=== PATIENT | male | born 1945 | race Caucasian/White ===

== ENCOUNTER 2020-01-22 05:52 | Inpatient (IN) | payer OTHER ==
[2020-01-21 12:43] LABS: BASOPHILS % (AUTO) 0.9 % (0.0-5.0); EOSINOPHILS % (AUTO) 4.1 % (0.0-8.0); HEMATOCRIT 32.2 % (42-54); LYMPHOCYTES % (AUTO) 25.6 % (21.0-51.0); MEAN CORPUSCULAR HEMOGLOBIN 34.4 pg (27.0-33.0); MEAN CORPUSCULAR HGB CONC 33.9 g/dL (32.0-36.0); MEAN CORPUSCULAR VOLUME 101.6 fL (79-99); MONOCYTES % (AUTO) 14.4 % (3.0-13.0); NEUTROPHILS % (AUTO) 54.6 % (40.0-77.0); PLATELET COUNT (AUTO) 113 K/uL (130-400); RED BLOOD CELL COUNT(AUTO) 3.17 MIL/uL (4.50-6.20); WHITE BLOOD COUNT (AUTO) 5.6 K/uL (4.8-10.8)
[2020-01-21 12:45] LABS: APPEARANCE,URINE Clear (CLEAR); BILIRUBIN,URINE Negative (NEGATIVE); COLOR,URINE Yellow (YELLOW); GLUCOSE, URINE (UA) Negative (NEGATIVE); KETONES,URINE Negative (NEGATIVE); LEUKOCYTE ESTERASE ,URINE Negative (NEGATIVE); NITRATE,URINE Negative (NEGATIVE); OCCULT BLOOD,URINE Negative (NEGATIVE); PH,URINE 5.5 (5.0-8.0); PROTEIN,URINE POS 2+ mg/dL (NEGATIVE); UROBILINOGEN,URINE 0.2 mg/dL (0.2-1.0)
[2020-01-21 12:51] LABS: CREATININE 3.5 mg/dL (0.5-1.5); POTASSIUM 4.3 mmol/L (3.5-5.1)
[2020-01-21 12:55] LABS: INR 0.97 (0.85-1.15); PARTIAL THROMBOPLASTIN TIME 26.9 SEC (26.3-35.5); PROTHROMBIN TIME 10.5 SEC (9.6-11.6)
[2020-01-21 13:01] LABS: BACTERIA,URINE None Seen /HPF (None Seen); RBC,URINE 0-1 /HPF (0-1); WBC,URINE 0-1 /HPF (0-1)
[2020-01-21 13:05] VITALS: BP 177/88
--- NOTE | 2020-01-21 14:00 | NUR ---
LABS ABNORMAL BUN/CREA, H&H, PLT , REPORTED TO CHEYENNE CROOK, DR. Maria Luz BROWN SPOKE TO PATIENT REGARDING PROCEDURE AGAIN AND HIGH RISK DUE TO HIS KIDNEY FUNCTION , PT WILL THINK ABOUT IT AND DECIDE THIS PM WHETHER HE WILL CONTINUE WITH PLANNED PROCEDURE.
[~2020-01-22] VITALS: Ht 175.3 cm; Wt 78.2 kg
[2020-01-22] VITALS (11 sets, daily range): BP systolic 115–183; BP diastolic 68–115
--- NOTE | 2020-01-22 07:50 | NUR ---
DR BROWN SPEAKS TO PATIENT AT BEDSIDE. CONSENT SIGNED
[2020-01-22] MEDS ORDERED: SODIUM CHLORIDE 0.9% 1000ML 1,000 ML IV ONE ×2 (08:03→22:21)
[2020-01-22] MEDS ORDERED: AMLO-258 PO (08:17)
[2020-01-22] MEDS ORDERED: MONT10TA26 PO (08:17)
[2020-01-22] MEDS ORDERED: PANT40TA54 PO (08:17)
[2020-01-22] MEDS ORDERED: CETI10TA57 PO (08:17)
[2020-01-22] MEDS ORDERED: ATEN100T PO (08:17)
[2020-01-22] MEDS ORDERED: HYDR-4154 PO (08:17)
[2020-01-22] MEDS ORDERED: CYAN1000I IM (08:17)
[2020-01-22] MEDS ORDERED: SENN8.6T32 PO (08:17)
[2020-01-22] MEDS ORDERED: MELA3TAB41 PO (08:17)
--- NOTE | 2020-01-22 08:20 | NUR ---
DR CHRIS TRAMMELL NOTIFIED WITH CONSULT INFORMATION- ASKED TO BE CALLED ONCE PATIENT IN HIS ROOM
[2020-01-22] MEDS: SODIUM CHLORIDE 0.9% 1000ML 1,000 ML IV SCH ×3 (08:22→21:20)
[2020-01-22] MEDS ORDERED: MIDAZOLAM HCL 1 MG/ML 2ML VIAL ONE (08:35)
[2020-01-22] MEDS ORDERED: HEPARIN SODIUM 1000UNIT/ML 10ML VIAL ONE ×3 (11:20→18:40)
[2020-01-22] MEDS ORDERED: IODIXANOL 320 MG/ML 100 ML VIAL ONE ×2 (11:20→18:42)
[2020-01-22] MEDS ORDERED: MINERAL OIL 25 ML OIL TP ONE (11:26)
[2020-01-22] MEDS ORDERED: LIDOCAINE HCL MPF 1% 5ML VIAL ONE (11:28)
[2020-01-22] MEDS ORDERED: PROPOFOL 10 MG/ML 20ML VIAL IV ONE ×2 (11:28→13:04)
[2020-01-22] MEDS ORDERED: ROCURONIUM BROMIDE 10MG/1ML 5ML VL ONE (11:29)
[2020-01-22] MEDS ORDERED: FENTANYL CITRATE PF 50 MCG/1 ML 2ML VIAL ONE ×4 (11:29→21:31)
[2020-01-22] MEDS ORDERED: PHENYLEPHRINE HCL 10 MG/ML 1ML VIAL IV ONE (11:54)
[2020-01-22] MEDS ORDERED: CEFAZOLIN SODIUM 1 GM VIAL ONE (11:56)
[2020-01-22] MEDS ORDERED: GLYCOPYRROLATE 1 MG/5 ML SYRINGE ONE (12:21)
[2020-01-22] MEDS ORDERED: NITROGLYCERIN 2 MG/VIAL VIAL IV ONE (13:50)
[2020-01-22 16:51] LABS: ABG BASE EXCESS -6.3 mmol/L (-2.0-3.0); ABG OXYGEN SATURATION 98.3 % (95.0-99.0); ABG PCO2 37 mmHg (35-48)
[2020-01-22] MEDS ORDERED: SODIUM BICARB 50MEQ 50ML VIAL ONE ×2 (17:02→20:16)
[2020-01-22 18:24] LABS: ABG BASE EXCESS -3.3 mmol/L (-2.0-3.0); ABG HCO3 21.4 mmol/L (21.0-28.0); ABG OXYGEN SATURATION 98.1 % (95.0-99.0); ABG PCO2 37 mmHg (35-48)
[2020-01-22] MEDS ORDERED: SODIUM BICARB 8.4% 50ML SYRINGE IVP ONE (18:38)
[2020-01-22] MEDS ORDERED: EPINEPHRINE 0.1 MG/ML 10 ML SYG IVP ONE (18:38)
[2020-01-22] MEDS ORDERED: HYDRALAZINE HCL 20 MG/ML VIAL ONE (19:51)
[2020-01-22 20:06] LABS: ABG BASE EXCESS -6.9 mmol/L (-2.0-3.0); ABG HCO3 18.5 mmol/L (21.0-28.0); ABG OXYGEN SATURATION 98.1 % (95.0-99.0); ABG PCO2 37 mmHg (35-48)
[2020-01-22] MEDS ORDERED: ACETAMINOPHEN 325 MG TAB PO PRN (22:00)
[2020-01-22] MEDS ORDERED: SODIUM CHLORIDE 0.9% 1000ML 1,000 ML IV SCH (22:00)
[2020-01-22] MEDS ORDERED: MORPHINE SULFATE 4 MG/1ML SYG IV PRN (22:00)
[2020-01-22] MEDS ORDERED: NITROGLYCERIN 50 MG/D5% WATER 250 BOT IV SCH (22:00)
--- NOTE | 2020-01-22 22:10 | NUR ---
ADMIT 2104 RECIEVED TEACHER PHYSICALLY IMPAIRED REPORT FROM MIKAYLA Ferrara RN AT 2210 PT ADMIT RM 217 ACCOMPANIED BY TEACHER PHYSICALLY IMPAIRED TEAM AND ALL AROUND PATTERNMAKER. PT ARRIVED WITH O2 NRB 15L AND SPINAL DRAIN WHICH WAS LEVELED AND ADJUSTED TO PROPER POSITION AND OPEN TO DRAIN BY ALL AROUND PATTERNMAKER AT BEDSIDE. PT CONNECTED TO BEDSIDE MONITOR NOTED TO BE HYPERTENSIVE AWAKE/ ALERT RESPONDING TO COMMANDS. UPON ASSESSMENT WITH TEACHER PHYSICALLY IMPAIRED NURSE ZORA ELLSWORTH NOTED BILAT LOWER EXTREMITIES SKIN MOTTLED LEFT GREATER THAN RIGHT. BILAT DP PULSE WEAK. BILAT GROIN SITES WITH PRESSURE DRESSINGS IN PLACE SITE SOFT WITH NO SIGNS OF HEMATOMA/BLEEDING. DRConstantin ORDERS REVIEWED AT BEDSIDE WITH MIKAYLA Ferrara RN BENCHMARK NOTIFIED OF CONSULT PT ARRIVAL, PROCEDURE DONE , CURRENT STATUS AND MEDS. NO NEW ORDERS RECEIVED. WILL CONTINUE TO MONITOR PT.
[2020-01-22] MEDS ORDERED: NITROGLYCERIN 50 MG/D5% WATER 1 BOT ONE (22:21)
[2020-01-22] MEDS ORDERED: ONDANSETRON HCL 4 MG/2 ML VIAL ONE (22:45)
[2020-01-22] MEDS ORDERED: MORPHINE SULFATE 4 MG/1ML SYG ONE (22:45)
[2020-01-22] MEDS ORDERED: NOREPINEPHRINE 4MG/NS 250ML 250 ML IV ONE (22:50)
[2020-01-23] VITALS (77 sets, daily range): BP systolic 76–167; BP diastolic 47–97
[2020-01-23 02:40] LABS: HEMATOCRIT 36.2 % (42-54)
[2020-01-23] MEDS: NOREPINEPHRINE 4MG/NS 250ML 250 ML IV SCH ×2 (03:24→22:33)
--- NOTE | 2020-01-23 03:30 | NUR ---
STATUS 0215 PATIENT COLOR IMPROVED ON RIGHT LOWER EXTREMITY. LEFT TOES REMAIN DUSKY. LEFT DP ABSENT. PATIENT REQUIRING INCREASED USE OF VASOPRESSORS TO ATTEMPT TO KEEP IN SBP PERAMETERS. COMPLAINT OF PAIN TO ABDOMEN, BACK, AND PELVIS. 0247 - DR BROWN PAGED AT [phone] TO PROVIDE WITH PATIENT UPDATE AND NOTIFY OF BP AND LEFT LE STATUS 0256 - [facility] DAIRY MANAGER PARIMUTUEL CASHIER PAGED 0301- SPOKE WITH DR NELSON. UPDATED ON PATIENT CONDITION. BP AND VASOPRESSOR USE, ABSENT DP PULSE, PAIN, AND H/H RESULT. NO NEW ORDERS. CONTINUE CURRENT INTERVENTIONS .ASKED MD ABOUT ARTERIAL DOPPLER. OK TO ORDER IN AM. 031- CALLED HS ALTERNATE NUMBER FOR DR HURD CALLED. [phone] 0330 - CC PARIMUTUEL CASHIER JASVIR CLEMENTS CALLED THOUGH ANSWERING SERVICE. UPDATED ON PATIENT CONDITION AND CALL WITH CARDIOLOGY. ORDERS RECEIVED AND ENTERED INTO SYSTEM. RADIOLOGY PAGED
[2020-01-23] MEDS: SODIUM CHLORIDE 0.9% 1000ML 1,000 ML IV SCH ×4 (04:00→21:58)
[2020-01-23 04:05] LABS: ABG BASE EXCESS -22.3 mmol/L (-2.0-3.0); ABG HCO3 6.8 mmol/L (21.0-28.0); ABG OXYGEN SATURATION 98.9 % (95.0-99.0); ABG PCO2 26 mmHg (35-48)
[2020-01-23] MEDS ORDERED: SODIUM BICARB 50MEQ 50ML VIAL ONE ×3 (04:05→04:13)
--- NOTE | 2020-01-23 04:10 | NUR ---
STATUS 0406- RT PAGED. ABG DRAWN. PER RESULTS PATIENT ACIDOTIC. PAGED CC GLASS SMOOTHER AGAIN AND PROVIDED WITH ABG RESULTS. ORDERS FOR 2 AMPS OF BICARB IVP THEN BICARB DRIP @ 100 ML/HR. ABX THERAPY WITH ZOSYN INITIATED.
[2020-01-23] MEDS ORDERED: DEXTROSE 5%-WATER 1,000 ML IV ONE (04:14)
[2020-01-23 04:28] LABS: HEMATOCRIT 35.7 % (42-54); MEAN CORPUSCULAR HEMOGLOBIN 32.4 pg (27.0-33.0); MEAN CORPUSCULAR HGB CONC 32.2 g/dL (32.0-36.0); MEAN CORPUSCULAR VOLUME 100.6 fL (79-99); NUCLEATED RED BLOOD CELLS 0.1 % (0.0-0.19); RED BLOOD CELL COUNT(AUTO) 3.55 MIL/uL (4.50-6.20); RED CELL DISTRIBUTION WIDTH 17.1 % (11.0-15.5); WHITE BLOOD COUNT (AUTO) 28.3 K/uL (4.8-10.8)
[2020-01-23 04:49] LABS: CREATININE 4.8 mg/dL (0.5-1.5); POTASSIUM 4.8 mmol/L (3.5-5.1)
[2020-01-23] MEDS ORDERED: SODIUM BICARB 8.4% 50ML SYRING 200 MEQ in DEXTROSE 5%-WATER 950 ML IV ONE (05:45)
[2020-01-23] MEDS ORDERED: RENAL DOSE IV PRN (06:00)
[2020-01-23] MEDS: ZOSYN 3.375GM+NS 50ML 50 ML IV SCH ×2 (06:00→18:35)
[2020-01-23] MEDS: ONDANSETRON HCL 4 MG/2 ML VIAL IV PRN ×2 (06:02→20:14)
[2020-01-23] MEDS ORDERED: ZOSYN 3.375GM+NS 50ML 50 ML IV ONE (06:12)
[2020-01-23] MEDS: SODIUM BICARB 50MEQ 50ML VIAL IV SCH ×2 (06:29→08:29)
--- NOTE | 2020-01-23 06:33 | NUR ---
STATUS BP SLIGHTLY IMPROVED. STILL REQUIRING HIGH DOSE OF VASOPRESSOR TO MAINTAIN PARAMETERS. DR NELSON CALLED TO GET UPDATE ON PATIENT CONDITION. UPDATED ON ABG RESULTS AND INTERVENTIONS, VASOPRESSOR USE, AND PRELIMINARY RESULTS OF ARTERIAL DOPPLERS. STATED HE WOULD NOTIFY DR BROWN.
[2020-01-23 06:59] LABS: ABG BASE EXCESS -15.1 mmol/L (-2.0-3.0); ABG HCO3 11.6 mmol/L (21.0-28.0); ABG OXYGEN SATURATION 98.6 % (95.0-99.0); ABG PCO2 30 mmHg (35-48)
--- NOTE | 2020-01-23 07:00 | NUR ---
REPORT BEDSIDE REPORT GIVEN TO FRAN FRENCH RN. ON INSPECTION LEFT FOOT NOW PINK WITH WEAK PALPABLE DP PULSE. DRIPS REVIEWED.
[2020-01-23] MEDS ORDERED: HEPARIN 25000 UNITS/250 ML D5W 250 ML IV SCH (08:15)
[2020-01-23] MEDS: CETIRIZINE HCL 5 MG TABLET PO SCH (08:22)
[2020-01-23] MEDS: PANTOPRAZOLE SODIUM 40 MG TABLET.DR PO SCH (08:22)
[2020-01-23] MEDS: MORPHINE SULFATE 5 MG/ML VIAL IV PRN ×4 (08:23→20:24)
[2020-01-23] MEDS: CYANOCOBALAMIN (VITAMIN B-12) 1000 MCG/ML 1ML VIAL IM SCH (09:00)
[2020-01-23] MEDS: ATENOLOL 50 MG TABLET PO SCH (09:00)
[2020-01-23] MEDS: AMLODIPINE BESYLATE 5 MG TAB PO SCH (09:00)
[2020-01-23] MEDS: HYDRALAZINE HCL 25 MG TABLET PO SCH ×3 (09:00→19:57)
--- NOTE | 2020-01-23 09:00 | NUR ---
CHEYENNE PATTERSON HERE AND ADVISED PATIENT PLAN OF CARE FOR PATIENT.
[2020-01-23 10:31] LABS: INR 1.2 (0.85-1.15); PROTHROMBIN TIME 12.9 SEC (9.6-11.6)
[2020-01-23] MEDS ORDERED: NEOSTIGMINE 5MG/5ML SYR IV ONE (11:23)
[2020-01-23 11:58] LABS: ALBUMIN 2.1 g/dL (3.5-5.0); BILIRUBIN,TOTAL 0.6 mg/dL (0.2-1.0); CREATININE 5.2 mg/dL (0.5-1.5); POTASSIUM 4.3 mmol/L (3.5-5.1); TOTAL PROTEIN, SERUM 5.1 g/dL (6.0-8.3)
--- NOTE | 2020-01-23 15:00 | NUR ---
PT WAS ASSESSED BY DR. JIMENEZ AND ADVISED OF POSSIBLE NEED FOR DIALYSIS AND NEED FOR DIALYSIS CATHETER. WAS CONCERNED BECAUSE DR. 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 WAS ADVISED THAT HE WAS ADVISING HER OF POSSIBLE DIALYSIS AND THE NEED FOR A CATHETER. THE DOCTOR DECIDING FOR DIALYSIS WOULD BE DR. NYE.
--- NOTE | 2020-01-23 15:30 | NUR ---
DR. SOMERS HERE AND SPOKE WITH ABOUT NEEDING TO KEEP PATIENT WITH PRESENT TREATMENT AND THAT DR. NYE WOULD ADVISE ON DIALYSIS WHEN AND WHY HE WOULD NEED IT.
--- NOTE | 2020-01-23 16:00 | NUR ---
DIALYSIS CATHETER BY IR WAS SCHEDULED AND HAILY CARMICHAEL WAS ADVISED PER SCHEDULING AND MS. CARMICHAEL WAS ADVISED OF THE PATIENT BEING RETRIMMER. IR DOCTOR ORDERED FOR HEPARIN TO BE STOPPED AT 8AM AND THE CATHETER INSERTION IS SCHEDULED FOR 10 AM.
--- NOTE | 2020-01-23 16:23 | NUR ---
DC PLAN VISITED WITH PATIENT. PATIENT LIVES WITH SPOUSE. INDEPENDENT ABLE TO PERFORM ADL'S. PATIENT HAS NO SERVICES OR DME'S. FEELS SAFE TO RETURN HOME. Addendum: 01/23/20 at 1625 by QAMAR PACHECO RN CM Amended: Links added.
[2020-01-23 17:37] LABS: INR 1.25 (0.85-1.15); PROTHROMBIN TIME 13.4 SEC (9.6-11.6)
[2020-01-23 17:56] LABS: PARTIAL THROMBOPLASTIN TIME > 120.0 SEC (26.3-35.5)
--- NOTE | 2020-01-23 17:57 | NUR ---
IN ROOM AND HAS BEEN ADVISED OF THE IR PLACING DIALYSIS CATHETER TO BE PLACED TOMORROW AT 10AM.
--- NOTE | 2020-01-23 18:00 | NUR ---
HEPARIN HAS BEEN STOPPED FOR [address] WARM COMPRESSES TO LEFT FOOT. PT C/O BEING COLD AND WANTS IT COVERED.
--- NOTE | 2020-01-23 19:30 | NUR ---
ASSESSMENT ASSESSMENT COMPLETED. PATIENT AAOX3. BREATHING REGULAR AND UNLABORED ON NC. VERBALIZES PAIN TO ABDOMEN/BACK, PELVIS AFTER BEING MEDICATED. SODIUM BICARB DRIP AND HEPARIN DRIP RUNNING. NOREPINEPHRINE RE-INITIATED BY AM SHIFT DUE TO HYPOTENSION. SPOUSE AT THE BEDSIDE. DISCUSSED PLAN OF CARE. Addendum: 01/24/20 at 0957 by CARIE MORROW RN RN PULSES VERIFIED BY DOPPLER
[2020-01-23] MEDS ORDERED: MELATONIN 3 MG PO SCH (21:00)
[2020-01-23] MEDS ORDERED: SENNOSIDES 8.6 MG TABLET PO SCH (21:00)
[2020-01-23] MEDS ORDERED: MONTELUKAST SODIUM 10 MG TAB PO SCH (21:00)
[2020-01-23] MEDS: SODIUM BICARB 8.4% 50ML SYRING 200 MEQ in DEXTROSE 5%-WATER 950 ML IV SCH (21:50)
[2020-01-23 23:16] LABS: ABG BASE EXCESS 4.6 mmol/L (-2.0-3.0); ABG HCO3 29.3 mmol/L (21.0-28.0); ABG OXYGEN SATURATION 95.1 % (95.0-99.0); ABG PCO2 44 mmHg (35-48)
[2020-01-23 23:30] LABS: HEMATOCRIT 25.5 % (42-54)
[2020-01-24] VITALS (55 sets, daily range): BP systolic 25–143; BP diastolic 16–94
[2020-01-24] LABS: INR 1.28 (0.85-1.15); PROTHROMBIN TIME 13.7 SEC (9.6-11.6)
[2020-01-24 00:02] LABS: PARTIAL THROMBOPLASTIN TIME > 120.0 SEC (26.3-35.5)
[2020-01-24] MEDS ORDERED: SODIUM CHLORIDE 0.9% 250 ML IV ONE ×2 (00:02→02:00)
--- NOTE | 2020-01-24 00:05 | NUR ---
STATUS PATIENT REQUIRING INCREASED DOSES OF VASOPRESSOR SUPPORT. DP PULSES PRESENT BY DOPPLER. 2320 ABG COMPLETED WITH H/H AND PTT. 0001 FARM MANAGEMENT AGENT FOR [facility] CALLED. SPOKE WITH DR HOWARD. UPDATED ON PATIENT CONDITION. INCREASED NEED OF VASOPRESSOR SUPPORT CURRENT V/S. DROP IN H/H FROM AM. CURRENT COAG LABS WHILE ON HEPARIN DRIP. ABGS. UNRELIEVED PAIN AFTER MEDICATION TO ABDOMEN AND BACK. DUSKY TOES ON LEFT. DP PULSES + BY DOPPLER ORDERS RECEIVED FOR STAT CT ABDOMEN PELVIS WITHOUT CONTRAST. STOP HEPARIN DRIP. [address]US. CONTACT WITH [address] RESULTS TO [phone]
--- NOTE | 2020-01-24 01:15 | NUR ---
CT [address] VIA BED WITH RN AND PCP. CT COMPLETED WITHOUT INCIDENT. 250 ML BOLUS COMPLETED WITH NO EFFECT ON BP 0115- DR HOWARD CALLED AND PROVIDED WITH CT RESULTS. ORDERS RECEIVED FOR NG TUBE. CONTINUE WITH CURRENT TREATMENT.
[2020-01-24] MEDS: MORPHINE SULFATE 5 MG/ML VIAL IV PRN (01:40)
[2020-01-24] MEDS ORDERED: SIMETHICONE 80 MG TAB.CHEW ONE (01:58)
[2020-01-24] MEDS ORDERED: SIMETHICONE 80 MG TAB.CHEW PO PRN (02:00)
[2020-01-24 03:54] LABS: ABG HCO3 26.6 mmol/L (21.0-28.0); ABG OXYGEN SATURATION 92.7 % (95.0-99.0); ABG PCO2 42 mmHg (35-48)
--- NOTE | 2020-01-24 04:01 | NUR ---
STATUS 0200 NG TUBE PLACED 500 ML OF DARK GREEN/ BROWN FLUID REMOVED. PATIENT VOICES SOME RELIEF TO UPPER GASTRIC AREA. STILL COMPLAINS OF PAIN TO LOWER ABDOMEN/BACK/PELVIC AREA. PATIENT STILL REQUIRING INCREASED NEED FOR VASOPRESSOR SUPPORT WITH SBP DECREASING TO 70-80'S AT TIMES. PT GIVEN ANOTHER 250 ML BOLUS WITH NO EFFECT ON BP. DP PULSES STILL PRESENT VIA DOPPLER. BOTH RIGHT AND LEFT FOOT APPEAR DUSKY. PATIENT SILL HAS SENSATION TO TOUCH BILATERALLY. BLE COOL TO TOUCH. PROFOUND WEAKNESS TO RLE. UNABLE TO MOVE TOES CAN MOVE LE AT KNEE SLIGHTLY. NO ISSUES WITH MOVEMENT TO LEFT LE. INCREASED DRAINAGE FROM EPIDURAL CSF DRAIN. PATIENT WITH DECREASED LOC BUT STLL ORIENTED X3. ABG COMPLETED WITH REPEAT H/H. CALLED DR HOWARD. UPDATED ON CHANGES AND CURRENT PATIENT CONDITION AND MOST RECENT LABS. ORDERS RECEIVED FOR DOPAMINE DRIP.
[2020-01-24 04:14] LABS: HEMATOCRIT 25.2 % (42-54); MEAN CORPUSCULAR HGB CONC 34.1 g/dL (32.0-36.0); MEAN CORPUSCULAR VOLUME 93.7 fL (79-99); NUCLEATED RED BLOOD CELLS 0.4 % (0.0-0.19); RED BLOOD CELL COUNT(AUTO) 2.69 MIL/uL (4.50-6.20); RED CELL DISTRIBUTION WIDTH 17.5 % (11.0-15.5)
[2020-01-24] MEDS ORDERED: DOPAMINE 800MG/D5 250ML 250 ML IV ONE (04:25)
[2020-01-24 04:30] LABS: INR 1.21 (0.85-1.15); PARTIAL THROMBOPLASTIN TIME 49.9 SEC (26.3-35.5)
[2020-01-24] MEDS ORDERED: DEXTROSE 50%-WATER 50 ML DISP.SYRIN IV ONE (04:31)
[2020-01-24 04:51] LABS: CREATININE 6.2 mg/dL (0.5-1.5); MAGNESIUM 1.4 mg/dL (1.80-2.40); POTASSIUM 4.1 mmol/L (3.5-5.1)
[2020-01-24] MEDS ORDERED: DOPAMINE 800MG/D5 250ML 250 ML IV PRN (05:15)
[2020-01-24] MEDS: NOREPINEPHRINE 4MG/NS 250ML 250 ML IV SCH ×3 (05:31→15:27)
[2020-01-24] MEDS: ONDANSETRON HCL 4 MG/2 ML VIAL IV PRN (05:31)
--- NOTE | 2020-01-24 05:43 | NUR ---
CC SECONDARY ART TEACHER CC SECONDARY ART TEACHER PAGED FOR RECOMMENDATIONS AND UPDATE ON PATIENT CONDITION . ANSWERING SERVICE UNABLE TO REACH CC SECONDARY ART TEACHER. WILL CALL BACK ONCE IS ABLE TO REACH SECONDARY ART TEACHER.
--- NOTE | 2020-01-24 06:25 | NUR ---
STATUS 0540 LEFT AC PIV ACCESS LEAKING. IV REMOVED. MULTIPLE ATTEMPTS FOR ADDITIONAL IV ACCESS BY 3 NURSES. 0559- DR HOWARD CALLED AND NOTIFIED OF CURRENT PATIENT CONDITION AND HYPOTENSION DESPITE ADDING DOPAMINE TO VASOPRESSOR SUPPORT. DOPAMINE CURRENTLY AT 10 MCG/KG/MIN. ORDERS RECEIVED FOR STAT 2D ECHO. STATED WILL CALL DR HURD TO NOTIFY OF PATIENT CONDITION 0603 HS NOTIFIED OF STAT 2-D ECHO. BUSINESS DEVELOPMENT SPECIALIST TO BE CALLED IN 0604 SPOUSE KYLE RAYMUNDO CALLED AND NOTIFIED OF PATIENT CONDITION. SPOUSE WILL COME IN JANUSZ. 0608 ER/HS CALLED AND REQUESTED VEIN VIEW AND IO KIT 0625 SECURITY NOTIFIED OF SPOUSE ARRIVAL DUE TO VISITATION RESTRICTIONS.
[2020-01-24] MEDS: SODIUM CHLORIDE 0.9% 1000ML 1,000 ML IV SCH (06:40)
[2020-01-24] MEDS ORDERED: LIDOCAINE HCL 1% 20 ML VIAL ONE (06:56)
[2020-01-24] MEDS ORDERED: METRONIDAZOLE 500MG/100ML BAG 100 ML IV SCH (07:03)
[2020-01-24] MEDS ORDERED: PHARMACY COMMUNICATION MISC SCH (07:30)
[2020-01-24] MEDS ORDERED: IOHEXOL 350 MG/ML 100ML INFUS..BTL IV ONE (07:30)
--- NOTE | 2020-01-24 07:30 | NUR ---
STATUS 0635 DR NYE AT THE BEDSIDE. UPDATED ON OVERNIGHT EVENTS AND PATIENT CONDITION. ORDERS TO HOLD HD CATHETER PLACEMENT AND HD UNTIL PATIENT STABILIZES. [address] HOWARD AT THE PATIENT BEDSIDE. PATIENT ASSESSED. PROTECTIVE SIGNAL OPERATIONS SUPERVISOR JOE AT THE BEDSIDE PERFORMING 2-D ECHO. CHEYENNE CALLED CV SURGEON DR SOMERS AND UPDATED ON PATIENT CONDITION. ORDERS FOR ADDITIONAL ANTIBIOTIC, STAT CT CHEST/ABD/PELVIS WITH CONTRAST. CONSENT OBTAIN BY JODEE PARDO FOR IV CONTRAST CT. 0652 ER/HS CALLED AND REQUEST ER NURSE TO PLACE IO. REPORT GIVEN TO JODEE CARLTON AT THE BEDSIDE. 07 PATIENT AND SPOUSE INFORMED OF NEED FOR IO PLACEMENT DUE TO VASOPRESSOR SUPPORT AND TO USE ONLY PIV FOR IV CONTRAST. PATIENT STATED DID NOT COMPLETELY UNDERSTAND BUT IN AGREEMENT. SPOUSE IN AGREEMENT. INFORMED AMBREEN HOGAN AND DR HOWARD THAT IO WILL BE PLACED. IO PLACED BY ED NURSE. VASOPRESSORS CONNECTED TO IO ACCESS. 7294 RADIOLOGY PAGED FOR TECH TO ASSIST WITH TRANSPORT.
[2020-01-24] MEDS ORDERED: LEVOFLOXACIN 500 MG/D5W 100 ML 100 ML IV SCH (07:45)
[2020-01-24] MEDS: PANTOPRAZOLE SODIUM 40 MG TABLET.DR PO SCH (08:00)
[2020-01-24] MEDS: SODIUM BICARB 8.4% 50ML SYRING 200 MEQ in DEXTROSE 5%-WATER 950 ML IV SCH (08:30)
[2020-01-24] MEDS: ATENOLOL 50 MG TABLET PO SCH (09:00)
[2020-01-24] MEDS: CETIRIZINE HCL 5 MG TABLET PO SCH (09:00)
[2020-01-24] MEDS: AMLODIPINE BESYLATE 5 MG TAB PO SCH (09:00)
[2020-01-24] MEDS: CYANOCOBALAMIN (VITAMIN B-12) 1000 MCG/ML 1ML VIAL IM SCH (09:00)
[2020-01-24] MEDS: HYDRALAZINE HCL 25 MG TABLET PO SCH ×2 (09:00→14:00)
[2020-01-24] MEDS: ZOSYN 3.375GM+NS 50ML 50 ML IV SCH (09:12)
[2020-01-24] MEDS ORDERED: MEPERIDINE HCL/PF 25 MG/0.5 ML AMPUL IM PRN (11:15)
[2020-01-24] MEDS ORDERED: MEPERIDINE-PF 50 MG/ML SYG IM PRN (11:15)
[2020-01-24] MEDS ORDERED: LIDOCAINE PF 2% 5ML ABBOJECT ONE (12:29)
[2020-01-24] MEDS ORDERED: SODIUM BICARB 8.4% 50ML SYRING 150 MEQ in DEXTROSE 5%-WATER 1,000 ML IV SCH (12:45)
[2020-01-24 14:37] LABS: HEMATOCRIT 24.6 % (42-54)
[2020-01-24] MEDS ORDERED: NOREPINEPHRINE BITARTRATE 16 MG in SODIUM CHLORIDE 0.9% 250 ML IV SCH (15:30)
[2020-01-24] MEDS ORDERED: HYDROMORPHONE 1 MG/1 ML AMP IVP PRN (15:45)
[2020-01-24] MEDS ORDERED: HYDROMORPHONE HCL 0.5 MG/0.5 ML ML IVP PRN (15:45)
[2020-01-24] MEDS ORDERED: SODIUM CHLORIDE 0.9% 500ML 500 ML IV ONE (16:32)
[2020-01-24] MEDS ORDERED: EPINEPHRINE 10 MG in SODIUM CHLORIDE 0.9% 250 ML IV SCH (18:45)
[2020-01-25 08:13] LABS: HEPATITIS A ANTIBODY IGM Negative (Negative); HEPATITIS B CORE IGM Negative (Negative); HEPATITIS Bs ANTIGEN SCREEN P Negative (Negative)
== END 2020-01-24 18:39 | disposition expired | DRG 219 ==
LOC: DAHIP 05:52 → EDSTATUS 07:00 → 2CH 22:20
PROVIDERS: ADMIT Internal Medicine Critical Care Medicine; ATTEND Internal Medicine Critical Care Medicine
PROC: 03U Upper Arteries, Supplement (ICD-10-PCS; 2020-01-22)
PROC: 02VW3DZ Restriction of Thoracic Aorta, Descending with Intraluminal Device, Percutaneous Approach (ICD-10-PCS; principal; 2020-01-24)
PROC: 04V03DZ Restriction of Abdominal Aorta with Intraluminal Device, Percutaneous Approach (ICD-10-PCS; 2020-01-24)
PROC: 04H Lower Arteries, Insertion (ICD-10-PCS; 2020-01-24)
PROC: 04H Lower Arteries, Insertion (ICD-10-PCS; 2020-01-24)
PROC: 04HA3DZ Insertion of Intraluminal Device into Left Renal Artery, Percutaneous Approach (ICD-10-PCS; 2020-01-24)
PROC: B3101ZZ Fluoroscopy of Thoracic Aorta using Low Osmolar Contrast (ICD-10-PCS; 2020-01-24)
PROC: B4101ZZ Fluoroscopy of Abdominal Aorta using Low Osmolar Contrast (ICD-10-PCS; 2020-01-24)
PROC: B4141ZZ Fluoroscopy of Superior Mesenteric Artery using Low Osmolar Contrast (ICD-10-PCS; 2020-01-24)
PROC: B4171ZZ Fluoroscopy of Left Renal Artery using Low Osmolar Contrast (ICD-10-PCS; 2020-01-24)
PROC: 30233N1 Transfusion of Nonautologous Red Blood Cells into Peripheral Vein, Percutaneous Approach (ICD-10-PCS; 2020-01-24)
PROC: 5A12012 Performance of Cardiac Output, Single, Manual (ICD-10-PCS; 2020-01-24)
PROC: 02HV33Z Insertion of Infusion Device into Superior Vena Cava, Percutaneous Approach (ICD-10-PCS; 2020-01-24)
PROC: B548ZZA Ultrasonography of Superior Vena Cava, Guidance (ICD-10-PCS; 2020-01-24)
DX: I71.6 Thoracoabdominal aortic aneurysm, without rupture (principal); J96.91 Respiratory failure, unspecified with hypoxia; N18.6 End stage renal disease; E43 Unspecified severe protein-calorie malnutrition; I12.0 Hypertensive chronic kidney disease with stage 5 chronic kidney disease or end stage renal disease; E87.2 Acidosis; N17.9 Acute kidney failure, unspecified; T82.538A Leakage of other cardiac and vascular devices and implants, initial encounter; D63.8 Anemia in other chronic diseases classified elsewhere; D50.0 Iron deficiency anemia secondary to blood loss (chronic); D72.829 Elevated white blood cell count, unspecified; Z66 Do not resuscitate; G83.11 Monoplegia of lower limb affecting right dominant side; I70.1 Atherosclerosis of renal artery; I71.4 Abdominal aortic aneurysm, without rupture; I72.8 Aneurysm of other specified arteries; I89.0 Lymphedema, not elsewhere classified; Z86.79 Personal history of other diseases of the circulatory system; Z87.442 Personal history of urinary calculi; Z79.899 Other long term (current) drug therapy; Z90.49 Acquired absence of other specified parts of digestive tract
CPT/HCPCS: 33881; 34705; 34713; 34716; 36245; 36251; 36415; 36430; 36800; 37236; 37237; 70450; 71045; 71275; 74174; 74176; 75726; 76705; 76857; 80048; 80053; 80074; 81001; 82150; 82435; 82803; 82947; 83605; 83615; 83690; 83735; 84100; 84132; 84295; 85014; 85018; 85025; 85027; 85347; 85610; 85730; 86850; 86900; 86901; 86922; 87635; 92950; 93306; 93925; 93979; A4344; A4351; A4606; C1725; C1751; C1760; C1769; C1874; C1887; C1893; C1894; G0378; J0171; J0360; J0690; J1170; J1265; J1644; J1956; J2001; J2175; J2250; J2270; J2370; J2405; J2543; J2704; J2710; J3010; J3490; J7030; J7040; J7050; J7070; J7120; P9016; Q9967